=== PATIENT | male | born 1995 | race Caucasian/White ===

== ENCOUNTER 2017-08-07 19:37 | Emergency (ER) | payer BC ==
[~2017-08-07] VITALS: Ht 188 cm; Wt 73.3 kg
[2017-08-07] MEDS ORDERED: MOTRIN800 MG PO (20:45)
[2017-08-07] MEDS ORDERED: NORCO 7.5/321 TABLET PO (20:45)
[2017-08-07 21:32] VITALS: BP 120/73
== END 2017-08-07 21:33 | disposition home or self-care (01) ==
LOC: EME 19:37
DX: S43.402A Unspecified sprain of left shoulder joint, initial encounter (principal); S43.52XA Sprain of left acromioclavicular joint, initial encounter; V00.311A Fall from snowboard, initial encounter; Y93.23 Activity, snow (alpine) (downhill) skiing, snowboarding, sledding, tobogganing and snow tubing
CPT/HCPCS: 73030; 99281; 99283